=== PATIENT | female | born 1950 | race Caucasian/White ===

== ENCOUNTER 2020-12-30 07:32 | Outpatient (CLI) | payer MEDICARE, SELFPAY ==
--- NOTE | ~2020-12-30 | XR_ITS ---
UGI-AIR CONTRAST/SMALL BOWEL INDICATION: Epigastric pain. Lymphocytic colitis. TECHNIQUE: Serial images of the upper GI tract structures and small bowel are performed following ora l administration of barium using double contrast technique. COMPARISON: Ultrasound dated 12/30/2020 FINDINGS: Barium flowed readily through the esophagus. There is a small sliding hiatal hernia with ga stroesophageal reflux. Gastric contour, mucosa and motility are normal. The duodenal bulb fills and empties regularly and has a normal mucosal pattern. The duodenal sweep is in normal position. The m ucosal pattern of the small bowel is unremarkable with normal transit time to the colon. IMPRESSION: 1: Small hiatal hernia with gastroesophageal reflux. Otherwise, unremarkable upper GI/small bowel ser ies. Reviewed, dictated and finalized at location A. IMPRESSION: 1: Small hiatal hernia with gastroesophageal reflux. Otherwise, unremarkable up per GI/small bowel series.
--- NOTE | ~2020-12-30 | US_ITS ---
US abdomen complete EXAMINATION: US Abdomen Complete INDICATION: Epigastric pain. Prior cholecystectomy. PROCEDURE: Realtime High Resolution abdomen ultrasound. COMPARISON: No prior studies for comparison FINDINGS: Gallbladder is surgically absent. Common bile duct measures 7 mm. Liver echotexture within normal limits without focal mass. Pancreas within normal limits. Pancreati c tail is obscured by bowel gas. Spleen is unremarkeable. Renal echotexture is within normal limits bilaterally without hydronephrosis, or renal stone. There is a hypoechoic mass laterally in the left kidney measuring 8 mm, containing internal echogenic foci, possibly layering milk of calcium. Right k idney measures 10.2 cm. Left kidney measures 10.3 cm. Visualized aspects of the aorta and IVC are within normal limits. Portal vein is patent. No sonograph ic Laurent's sign indicated by the technologist. IMPRESSION: 1: Status post cholecystectomy with expected prominence of the bile ducts. 2: Hypoechoic left renal mass laterally measuring 8 mm with echogenic focus internally. This may repr esent layering milk of calcium. Consider correlation with CT with/without contrast. Reviewed, dictated and finalized at location A. IMPRESSION: 1: Status post cholecystectomy with expected prominence of the bile ducts. 2: Hypoechoic left renal mass laterally measuring 8 mm with echogenic focus int ernally. This may represent layering milk of calcium. Consider correlation with CT with/without contrast.
== END 2020-12-30 07:33 | disposition home or self-care (01) ==
PROVIDERS: PCP Internal Medicine; Visit Provider Internal Medicine
DX: R10.13 Epigastric pain (principal); K44.9 Diaphragmatic hernia without obstruction or gangrene; K21.9 Gastro-esophageal reflux disease without esophagitis; Z90.49 Acquired absence of other specified parts of digestive tract
CPT/HCPCS: 74240; 74248; 76700

== ENCOUNTER 2021-02-03 08:44 | Outpatient (CLI) | payer MEDICARE, SELFPAY ==
--- NOTE | ~2021-02-03 | CT_ITS ---
EXAMINATION: CT abdomen pelvis wo/w con EXAM DATE: 02/03/2021 09:22 INDICATION: N28.1 - Cyst/mass of kidney, acquired. Left flank pain. TECHNIQUE: Spiral CT of the abdomen without contrast followed by both abdomen and pelvis with 100 cc intravenous Omnipaque 350. Axial, coronal and sagittal images of the abdomen and pelvis were reviewe d. The dose-length product (DLP) for this examination was 623.06 mGy-cm. The exposure was tailored according to patient size (auto mA exposure control), and iterative reconstruction (ASIR) was used as additional dose reduction technique. There is no prior study for comparison. FINDINGS: In the midpole of the left kidney there is about 3 x 9 mm hypodense region, appearance most consistent with a cyst, but too small to definitively characterize. This likely correlates to the ul trasound finding. No suspicious renal lesions. The liver, spleen, adrenal glands and pancreas are un remarkable. There are cholecystectomy clips. Portal and splenic veins are patent. Kidneys enhance symmetrically. There is no hydronephrosis. The uterus is not identified and has likely been surgic ally resected. The bladder is unremarkable. There is no retroperitoneal or pelvic lymphadenopathy. There is mild to moderate scattered arteriosclerotic disease. The appendix is not positively visualized. There is no pericecal inflammatory change to suggest appe ndicitis. There is moderate sigmoid colonic diverticulosis. There is no adjacent inflammatory change to suggest diverticulitis. The stomach and small bowel are unremarkable. There is expected amount o f colonic stool. No free intraperitoneal gas. The heart is normal in size. There are no pericard ial or pleural effusions. The lung bases are unremarkable. There are no osteoblastic or osteolytic lesions identified. IMPRESSION: 1. Subcentimeter left renal lesion appearance most consistent with cyst, but too small to definitive ly characterize. Probably benign. 2. Moderate sigmoid diverticulosis. Reviewed, dictated and finalized at location A. IMPRESSION: 1. Subcentimeter left renal lesion appearance most consistent with cyst, but t oo small to definitively characterize. Probably benign. 2. Moderate sigmoid diverticulosis.
[2021-02-03 09:15] LABS: Estimated Glomerular Filt Rate > 60
== END 2021-02-03 08:45 | disposition home or self-care (01) ==
PROVIDERS: PCP Internal Medicine; Visit Provider Internal Medicine
DX: N28.1 Cyst of kidney, acquired (principal); K57.30 Diverticulosis of large intestine without perforation or abscess without bleeding
CPT/HCPCS: 74178; Q9967

== ENCOUNTER 2021-06-25 11:16 | Outpatient (CLI) | payer MEDICARE, SELFPAY ==
--- NOTE | 2021-06-28 16:18 | WPDHOLTEREM ---
Holter/Event Monitor Holter/Event Monitor Date of procedure: 06/28/21 Holter/Event Procedure: 48 Hr Holter Monitor Indications: PAC's Conclusion: 1. 48 hour holter monitor on 06/28/21. 2. Predominant rhythm is sinus rhythm. HR range is 53-194 bpm; average HR 96 bpm. 3. There are 1,571 premature supraventricular complexes, 28 supraventricular couplets, 12 supraventricular bigeminy, 3 supraventricular trigeminy. There are 22 episodes of supraventricular tachycardia, fastest at 188 bpm and longest lasting 5 beats. There are 35 episodes of atrial fibrillation, with burden of 19%. 4. There are 22 premature ventricular complexes. No ventricular tachycardia. 5. No significant pauses greater than 2 seconds. 6. Patient reports symptoms of fluttering which demonstrate atrial fibrillation at 171 bpm.
== END 2021-06-25 11:17 | disposition home or self-care (01) ==
PROVIDERS: PCP Internal Medicine; Visit Provider Internal Medicine
DX: I49.1 Atrial premature depolarization (principal)
CPT/HCPCS: 93225; 93226

== ENCOUNTER → 2021-09-29 02:57 | Outpatient (CLI) | payer MEDICARE, SELFPAY ==
[2021-09-29 19:39] LABS: SARS-CoV-2 RNA PCR Negative
== END ==
PROVIDERS: PCP Internal Medicine; Visit Provider Internal Medicine
DX: Z20.822 Contact with and (suspected) exposure to COVID-19 (principal)
CPT/HCPCS: C9803; U0003; U0005

== ENCOUNTER 2022-01-03 09:39 | Emergency (ER) | payer MEDICARE, SELFPAY ==
--- NOTE | 2022-01-03 09:45 | ECG_ITS ---
Measurements Intervals [place] Rate: 78 P: 64 SC: 125 QRS: 51 QRSD: 85 T: 49 QT: 362 QTc: 412 Interpretive Statements SINUS RHYTHM WITH OCCASIONAL SUPRAVENTRICULAR PREMATURE COMPLEXES BORDERLINE ECG NO PREVIOUS ECG AVAILABLE FOR COMPARISON Electronically Signed On 01-03-2022 12:28:20 CDT by Uvaldo Posada M.D.
[2022-01-03 09:48] VITALS: BP 143/90; PULSE 83; RESP 21; TEMP 36.4; O2SAT 100
--- NOTE | 2022-01-03 09:55 | ED.ARRPALP ---
HPI - Arrhythmia/Palpitations General Chief Complaint: Arrhythmia/Palpitations Stated Complaint: A-fib Time Seen by Provider: 01/03/22 09:47 Source: patient and RN notes reviewed Limitations: no limitations History of Present Illness HPI narrative: 71-year-old female with history of paroxysmal atrial fibrillation on Eliquis presenting to the emergency department from her primary care physician for evaluation of A. fib with RVR. Patient states last night at approximately 7 PM she felt that her heart rate increased. Patient did check this on her watch and was found to have atrial fibrillation with a heart rate of 156. Patient does have a history of paroxysmal A. fib and is prescribed metoprolol on an as needed basis. Patient did take 12.5 mg of metoprolol last night. Patient presented to her PCP for evaluation and was found to still be in A. fib with RVR. During transport down to the emergency department from her primary care physician's office patient did convert back to a sinus rhythm. Upon arrival to the emergency department patient's heart rate was 83 and normal sinus rhythm. Patient states she does feel improved at this time. Patient denies any chest pain or shortness of breath. Patient denies any nausea vomiting or diarrhea. Patient denies any recent illnesses coughs colds or fevers. Patient states that she did have multiple glasses of iced tea last night and that this would be an increase compared to her normal level of caffeine. Related Data Home Medications Medication Instructions Recorded Confirmed [id number]-Lm-mrdh-minerals tablet PO 12/09/20 08/16/21 calcium carbonate 500 mg-vitamin 1 tablet PO DAILY 06/23/21 08/16/21 D3 10 mcg (400 unit) tablet vitamin B complex 1 tablet PO DAILY 06/29/21 08/16/21 metoprolol tartrate 12.5 mg PRN 01/03/22 Allergies Allergy/AdvReac Type Severity Reaction Status Date / Time gluten Allergy Intermediate Rash Verified 01/03/22 10:46 acetaminophen [From Tylenol] Allergy Other Verified 01/03/22 10:46 aspirin Allergy Other Verified 01/03/22 10:46 codeine Allergy Other Verified 01/03/22 10:46 latex Allergy rash Verified 01/03/22 10:46 nitazoxanide Allergy Unknown Verified 01/03/22 10:46 Sulfa (Sulfonamide Allergy Other Verified 01/03/22 10:46 Antibiotics) Iodinated Contrast Media AdvReac Unknown Palpitation Verified 01/03/22 10:46 s Review of Systems Review of Systems: CONSTITUTIONAL: Denies fever, chills, or sweats. EYES: Denies visual changes, redness, or discharge. ENT: Denies rhinorrhea, congestion, sore throat, or otalgia. CARDIOVASCULAR: Heart palpitations- resolved RESPIRATORY: Denies cough or dyspnea. GASTROINTESTINAL: Denies abdominal pain, nausea, vomiting, or diarrhea. GENITOURINARY: Denies dysuria or hematuria. SKIN: Denies rash or itching. MUSCULOSKELETAL: Denies back pain, joint pain, or myalgia. NEUROLOGIC: Denies headache, numbness, or weakness. All systems reviewed & are unremarkable except as noted in HPI and below PMFSH Past Medical History Medical History Abnormal finding of blood chemistry Amaurosis fugax APC (atrial premature contractions) Atrial fibrillation BMI 26.0-26.9,adult Carotid bruit Cataract Colon cancer screening Dyslipidemia Elevated blood pressure reading without diagnosis of hypertension Encounter for Medicare annual wellness exam Encounter for routine adult health examination without abnormal findings Encounter for screening mammogram for malignant neoplasm of breast Epigastric pain Exposure to COVID-19 virus Follow up Gluten intolerance Heart murmur Hx of colonic polyps Hyperkeratosis Hypersomnia Hypothyroidism (acquired) Kidney lesion 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
[2022-01-03 10:24] LABS: Basophils Percent Auto 0.4 % (0.2-1.2); Eosinophils Absolute Auto 0.2 K/mm3 (0-0.3); Eosinophils Percent Auto 3.4 % (0-4.4); Hematocrit 39.9 % (37.0-47.0); Hemoglobin 13.2 g/dL (12.0-15.0); Immature Granulocyte Absolute 0.01 K/mm3 (0.00-0.031); Immature Granulocyte Percent A 0.2 % (0-0.5); Lymphocytes Absolute Auto 1.16 K/mm3 (0.9-3.2); Lymphocytes Percent Auto 21.9 % (18.3-44.2); Mean Corpuscular HGB Conc 33.1 g/dl (32-36); Mean Corpuscular Hemoglobin 32.4 pg (26-34); Mean Corpuscular Volume 97.8 fl (80-100); Mean Platelet Volume 9.9 fl (7.4-10.4); Monocytes Absolute Auto 0.4 K/mm3 (0.1-0.6); Monocytes Percent Auto 7.9 % (2.6-8.5); Neutrophils Absolute Auto 3.5 K/mm3 (1.3-6.7); Neutrophils Percent Auto 66.2 % (45.5-73.1); Platelet Count Result 240 k/mm3 (150-375); Red Blood Count 4.08 M/mm3 (4.2-5.4); White Blood Count 5.3 K/mm3 (4.5-10.0)
[2022-01-03 10:37] LABS: Alanine Aminotransferase 37 U/L (4-35); Albumin Level 4.3 g/dL (3.5-5.1); Alkaline Phosphatase 78 U/L (38-126); Anion Gap 7 mmol/L (8-16); Aspartate Amino Transferase 45 U/L (14-36); Bilirubin,Total 0.7 mg/dL (0.2-1.3); Blood Urea Nitrogen 19 mg/dL (7-17); Calcium 8.8 mg/dL (8.4-10.2); Carbon Dioxide 27 mmol/L (22-30); Chloride 102 mmol/L (98-107); Estimated Glomerular Filt Rate > 60; Glucose 99 mg/dL (65-110); Potassium 4.6 mmol/L (3.4-5.0); Sodium 136 mmol/L (137-145)
[2022-01-03 10:59] VITALS: BP 115/59; PULSE 75; RESP 19; O2SAT 98
== END 2022-01-03 11:05 | disposition home or self-care (01) ==
PROVIDERS: Emergency Provider Emergency Medicine; PCP Internal Medicine
DX: I48.0 Paroxysmal atrial fibrillation (principal); E78.5 Hyperlipidemia, unspecified; K90.41 Non-celiac gluten sensitivity; Z86.010 Personal history of colon polyps; E03.9 Hypothyroidism, unspecified; E53.8 Deficiency of other specified B group vitamins; E55.9 Vitamin D deficiency, unspecified; Z86.73 Personal history of transient ischemic attack (TIA), and cerebral infarction without residual deficits; Z79.01 Long term (current) use of anticoagulants
CPT/HCPCS: 36415; 80053; 85025; 93005; 99283

== ENCOUNTER 2022-01-11 12:31 | Outpatient (CLI) | payer MEDICARE, SELFPAY ==
--- NOTE | ~2022-01-11 | US_ITS ---
EXAMINATION: US renal BI DATE: 01/11/2022 14:02 INDICATION: Disorder of kidney and ureter with left renal mass TECHNIQUE: Multiple ultrasound grayscale images of the kidneys were obtained. COMPARISON: Ultrasound dated 12/30/[address] dated 01/26/2021 FINDINGS: The right kidney measures 9.6 x 4.3 x 4.8 cm. The left kidney measures 9.3 x 5.3 x 3.8 cm. The kidney s demonstrate normal echogenicity. Unchanged 8 mm anechoic left renal cyst. There is no hydronephrosi s in either kidney. No stones identified. The bladder is normal. IMPRESSION: 1. Unchanged 8 mm left renal cyst. Otherwise normal kidneys with no hydronephrosis. Reviewed, dictated and finalized at location B. IMPRESSION: 1. Unchanged 8 mm left renal cyst. Otherwise normal kidneys with no hydronephr osis.
--- NOTE | ~2022-01-11 | MR_ITS ---
EXAMINATION: MR brain/brain stem wo/w con DATE: 01/11/2022 13:30 INDICATION: Amaurosis fugax. Visual field loss. TECHNIQUE: Magnetic resonance imaging (MRI) of the brain and brainstem was performed without and with 13 mL MultiHance intravenous contrast. Sequences included sagittal and axial T1-weighted FSE, axial diffusion-weighted FS EPI, axial T2*-weighted GRE, axial T2-weighted FLAIR Propeller, and axial T2-we ighted Propeller. Postcontrast sequences included axial and coronal T1-weighted FSE. Apparent diffusi on coefficient (ADC) maps were created. COMPARISON: Brain MRI 09/24/2018 FINDINGS: There is no intracranial hemorrhage, acute infarction, or abnormal intracranial mass lesion . The ventricles are normal in size. The mastoid air cells are normal. The orbits are normal. The par anasal sinuses are clear. IMPRESSION: 1. Normal brain. Reviewed, dictated and finalized at location A. IMPRESSION: 1. Normal brain.
--- NOTE | ~2022-01-11 | US_ITS ---
EXAMINATION: US carotid duplex BI DATE: 01/11/2022 14:00 INDICATION: Atrial fibrillation TECHNIQUE: Grayscale, color Doppler, and pulsed Doppler images of the cervical carotid arteries were obtained. The degree of vessel stenosis is placed in one of the following categories: normal, <50%, 5 0-69%, >=70% but less than near-occlusion, near-occlusion, or total occlusion. Note that percent sten osis relative to normal distal artery lumen diameter is indirectly measured from velocity measurement s as described by Rufino, et al. Radiology 2003; 229:340-346. COMPARISON: None. FINDINGS: RIGHT: The right common carotid artery (CCA) peak systolic velocity (PSV) is 114 cm/s. The right internal ca rotid artery (ICA) PSV is 100 cm/s. The right ICA end-diastolic velocity (EDV) is 19 cm/s. The right ICA/CCA PSV ratio is 0.9. Grayscale and color Doppler images yield an estimate of <50% diameter reduc tion from plaque in the ICA. The external carotid artery (ECA) PSV is 153 cm/s. There is antegrade fl ow in the right vertebral artery. LEFT: The left CCA PSV is 108 cm/s. The left ICA PSV is 95 cm/s. The left ICA EDV is 11 cm/s. The left ICA/ CCA PSV ratio is 0.9. Grayscale and color Doppler images yield an estimate of <50% diameter reduction from plaque in the ICA. The ECA PSV is 134 cm/s. There is antegrade flow in the left vertebral arter y. IMPRESSION: 1. <50% stenosis in the right internal carotid artery. 2. <50% stenosis in the left internal carotid artery. Reviewed, dictated and finalized at location B.
== END 2022-01-11 12:32 | disposition home or self-care (01) ==
LOC: ANHIMG 12:32
PROVIDERS: PCP Internal Medicine; Visit Provider Internal Medicine
DX: N28.9 Disorder of kidney and ureter, unspecified (principal); R09.89 Other specified symptoms and signs involving the circulatory and respiratory systems; N28.1 Cyst of kidney, acquired; I65.23 Occlusion and stenosis of bilateral carotid arteries
CPT/HCPCS: 70553; 76775; 93880; A9577

== ENCOUNTER 2022-05-02 07:55 | Outpatient (CLI) | payer MEDICARE, SELFPAY ==
--- NOTE | ~2022-05-02 | DEXA_ITS ---
Bone Density Report Name: BJ STILES Age: 71 Sex: Female Ethnicity: White Date of : 1950 Indication: postmenopausal; screening for osteoporosis; hysterectomy; Referring Provider: CHILANGO CLEMONS Study: Bone densitometry was performed. Exam Date: May 02, 2022 Accession number: [id number] Bone Density: Region BMD T-score Z-score Classification AP Spine(L1-L4) 0.993 -0.5 1.8 Normal Femoral Neck (Left) 0.761 -0.8 1.2 Normal Total Hip (Left) 0.895 -0.4 1.3 Normal Femoral Neck (Right) 0.759 -0.8 1.1 Normal Total Hip (Right) 0.879 -0.5 1.1 Normal Total Hip Mean 0.887 -0.5 1.2 Normal World Health Organization criteria for BMD impression classify patients as: Normal (T-score at or above -1.0), Osteopenia (T-score between -1.0 and -2.5), or Osteoporosis (T-score at or below -2.5). 10-year Fracture Risk: FRAX not reported because: All T-scores for Spine Total, Hip Total, Femoral Neck at or above -1.0 Previous Exams: Region Exam Age BMD T-score BMD Change BMD Change Date g/cm2 vs Baseline vs Previous AP Spine (L1-L4) 05/02/2022 71 0.993 -0.5 -0.040 (-3.9%) -0.040 (-3.9%) 07/05/2019 68 1.033 -0.1 Total Hip(Left) 05/02/2022 71 0.895 -0.4 -0.082 (-8.4%) -0.082 (-8.4%) 07/05/2019 68 0.977 0.3 Total Hip(Right) 05/02/2022 71 0.879 -0.5 -0.063 (-6.7%) -0.063 (-6.7%) 07/05/2019 68 0.942 0.0 *Denotes significance at 95% confidence level, LSC for AP Spine = 0.022 g/cm2, LSC for Total Hip = 0.027 g/cm2 # Denotes dissimilar scan types or analysis methods Clinical Information Provided by Patient: Has used the following medications: Vitamin D, Calcium Has the following medical conditions: Hysterectomy Patient maximum height was 63.5 Menopause Age: 22 Does not regularly consume dairy products Drinks caffeinated beverages Onset of menses at age 9 Number of children 3 Impression: The patient has normal bone mass. No significant bone loss was observed. Discussion: BONE DENSITY IS ABOVE THE MINIMUM DESIRABLE LEVEL AT ALL SKELETAL SITES TESTED. This patient?s bone mineral density is above the minimum desirable level (T-score -1.0 or better) at all sites measured. The patient should follow a healthful lifestyle (good nutrition with adequate calcium and vitamin D, and appropriate weight-bearing exercise). Follow-Up: Consider repeating this study in 5 years or sooner if there is some new clinical indication.
--- NOTE | ~2022-05-02 | MM_ITS ---
EXAMINATION: MM screening kang BI w nieves HISTORY: Screening mammogram TECHNIQUE: Craniocaudal and mediolateral oblique 3-D tomosynthesis images were obtained and synthetic 2-D images were generated. CAD analysis was submitted and interpreted. COMPARISON: 07/05/2019 bilateral screening mammogram BREAST PARENCHYMAL COMPOSITION: There are scattered areas of fibroglandular density. FINDINGS: Benign stable circumscribed intramammary lymph node again noted in the upper outer quadrant of each breast. There is no evidence of suspicious mass, calcification, or architectural distortion to suggest malignancy in either breast. There has been no suspicious interval change. IMPRESSION: 1. No mammographic evidence of malignancy. 2. Recommend routine screening mammography in one year. BI-RADS Category 2: Benign finding(s). Reviewed, dictated and finalized at location A.
== END 2022-05-02 07:56 | disposition home or self-care (01) ==
PROVIDERS: PCP Internal Medicine; Visit Provider Internal Medicine
DX: Z12.31 Encounter for screening mammogram for malignant neoplasm of breast (principal); Z78.0 Asymptomatic menopausal state
CPT/HCPCS: 77063; 77067; 77080

== ENCOUNTER 2023-05-08 13:14 | Outpatient (NON) | payer MEDICARE, SELFPAY | END 2023-05-08 13:15 | disposition home or self-care (01) | PROVIDERS: PCP Internal Medicine; Visit Provider Nurse Practitioner | DX: L30.8 Other specified dermatitis (principal) | CPT/HCPCS: 88305 ==

== ENCOUNTER 2024-07-09 14:33 | Outpatient (CLI) | payer MEDICARE, SELFPAY ==
--- NOTE | ~2024-07-09 | MM_ITS ---
EXAMINATION: MM screening kang BI w nieves HISTORY: Screening TECHNIQUE: Craniocaudal and mediolateral oblique 3-D tomosynthesis images were obtained and synthetic 2-D images were generated. CAD analysis was submitted and interpreted. COMPARISON: Comparison to multiple prior studies sequentially, with oldest reviewed study dated 07/05. BREAST PARENCHYMAL COMPOSITION: Not dense: There are scattered areas of fibroglandular density. FINDINGS: There is no evidence of suspicious mass, calcification, or architectural distortion to sugg est malignancy in either breast. There has been no suspicious interval change. IMPRESSION: 1. No mammographic evidence of malignancy. 2. Recommend routine screening mammography in one year. BI-RADS Category 1: Negative Reviewed, dictated and finalized at location B.
== END 2024-07-09 14:34 | disposition home or self-care (01) ==
LOC: MICIMG 14:34
PROVIDERS: PCP Internal Medicine; Visit Provider Internal Medicine
DX: Z12.31 Encounter for screening mammogram for malignant neoplasm of breast (principal)
CPT/HCPCS: 77063; 77067

== ENCOUNTER 2024-08-15 00:36 | Day surgery (SDC) | payer MEDICARE, SELFPAY ==
[2024-08-06 14:17] VITALS: BMI 25.4
--- NOTE | 2024-08-06 14:54 | PC.NURSE ---
Spoke with _PATIENT_ regarding medication _ELIQUIS. Pt. verbalizes understanding that the last dose of ELIQUIS is to be taken on 08/11/2024 and the Endoscopist will instruct them when to restart after the procedure.
[2024-08-15 07:48] VITALS: BP 134/57; PULSE 62; RESP 18; TEMP 36.6; O2SAT 98; BMI 24.6
[2024-08-15] MEDS: LACTATED RINGERS 1,000 ML 150 ML IV CONT (08:02)
--- NOTE | 2024-08-15 08:37 | P.HP_ITS ---
H&P: HPI History of Present Illness Date/Time: 08/15/24 08:37 Chief Complaint: History of polyps Narrative: The patient has a history of colonic polyps, the last colonoscopy was 6 years ago. Twenty-two years ago the patient had a pre neoplastic polyp. There are no current GI symptoms, rectal bleeding or change in bowel habits. Review of Systems Review of Systems: All systems reviewed & are unremarkable except as noted in HPI and below [facility] Past Medical History Medical History (Updated 06/11/24 @ 08:37 by Ann Vargas [facility]) Abnormal finding of blood chemistry Amaurosis fugax APC (atrial premature contractions) Atrial fibrillation Bicuspid aortic valve BMI 23.0-23.9, adult BMI 24.0-24.9, adult BMI 25.0-25.9,adult BMI 26.0-26.9,adult Carotid bruit Cataract Cataract of right eye Colon cancer screening DJD (degenerative joint disease) Elevated blood pressure reading without diagnosis of hypertension Encounter for Medicare annual wellness exam Encounter for routine adult health examination with abnormal findings Encounter for routine adult health examination without abnormal findings Encounter for screening mammogram for malignant neoplasm of breast Epigastric pain Exposure to COVID-19 virus Follow up Gluten intolerance Heart murmur History of cataract Hx of colonic polyps Hyperkeratosis Hypersomnia Hypothyroidism (acquired) Kidney lesion Mitral valve regurgitation Mixed hyperlipidemia 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 DIMAS on CPAP Overweight (BMI 25.0-29.9) Post menopausal syndrome Postmenopausal Renal cyst, left Squamous cell carcinoma of nose Thyroid disease TIA (transient ischemic attack) Tricuspid valve regurgitation Vitamin B12 deficiency Vitamin D deficiency Surgical History Surgical History History of appendectomy History of cholecystectomy History of ERCP History of hysterectomy Social History Social History Smoking status: Never smoker Second hand tobacco smoke exposure: No Alcohol intake: current Substance use: never Substance use type: does not use Lack of Transportation: No Lack of Food: Never True Current Housing: I Have Housing Concerned About Future Housing: No Difficulty Paying Gas/Electric Bills: No Difficulty Paying for Meds: No Currently Unemployed: No Education: Decline to Answer Difficulty w/ Childcare or Family Care: No Living arrangements: with family Gender identity (if verbalized by the patient): Female Spiritual care concerns: No Meds Home Medications and Allergies Home Medications Medication Instructions Recorded Confirmed Type famotidine 40 mg tablet (Pepcid) 40 mg PO DAILY PRN GERD #90 tabs 06/23/21 08/15/24 Rx lorazepam 0.5 mg tablet 0.5 mg PO TID PRN anxiety #50 tabs 08/04/22 08/15/24 Rx metoprolol tartrate 25 mg tablet 25 mg PO DAILY 11/16/22 08/15/24 History apixaban 5 mg tablet (Eliquis) See Rx Instructions .Route 05/10/23 08/15/24 Rx .COMPLEX #180 tabs cholecalciferol (vitamin D3) 50 50 mcg PO DAILY 10/19/23 08/15/24 History mcg (2,000 unit) capsule Krill oil 2,000 mg BYMOUTH DAILY 11/01/23 08/15/24 History Vitamin D + K 2,000 units BYMOUTH DAILY #90 caps 11/01/23 08/15/24 Rx curcumin-phosphatidylcholine 500 500 mg PO BID 11/01/23 08/15/24 History mg capsule cyanocobalamin (vitamin B-12) See Rx Instructions .Route 11/01/23 08/15/24 Rx 1,000 mcg/mL injection solution .COMPLEX #12 mL ezetimibe 10 mg tablet (Zetia) 10 mg PO DAILY #90 tabs 06/11/24 08/15/24 Rx levothyroxine 50 mcg tablet See Rx Instructions .Route 06/17/24 08/15/24 Rx .COMPLEX #90 tabs syringe with needle, safety 3 mL #20 ea 07/15/24 08/15/24 Rx 25 gauge x 1 (BD Integra Syringe) Allergies Allergy/AdvReac Type Severity Reaction Status Date / Time gluten Allergy Severe Rash Verified 08/15/24 07:46 aspirin Allergy Intermediate Rash Verified 08/15/24 07:46 codeine Allergy Intermediate Rash Verified 08/15/24 07:46 ibuprofen Allergy Intermediate Itching Verified 08/15/24 07:46 Iodinated Contrast Media Allergy Intermediate Palpitation Verified 08/15/24 07:46 s latex Allergy Intermediate rash Verified 08/15/24 07:46 nitazoxanide Allergy Intermediate Numbness Verified 08/15/24 07:46 Sulfa (Sulfonamide Allergy Intermediate Itching Verified 08/15/24 07:46 Antibiotics) acetaminophen [From Tylenol] AdvReac Intermediate Itching Verified 08/15/24 07:46 goats milk Allergy Intermediate Blister Uncoded 08/15/24 07:46 Vital Signs Vital Signs - 24 hr 08/15/24 07:48 Temperature 97.8 F Pulse Rate 62 Respiratory Rate 18 Blood Pressure 134/57 L Pulse Oximetry 98 Oxygen Delivery Room Air Exam Const: General: cooperative and healthy appearing Resp: Effort & Inspection: normal respiratory effort and able to speak in complete sentences Auscultation: clear to auscultation bilaterally Cardio: Rate: regular rate Rhythm: regular rhythm GI: Inspection: normal to inspection GI Palp: No No hepatosplenomegaly present Auscultation: normal bowel sounds Rectal Exam: deferred Skin: General skin exam: normal color Psych: Appearance: grossly normal Mental Status: mental status grossly normal Assessment and Plan Assessment and plan (1) Colon cancer screening: Code(s): Z12.11 - Encounter for screening for malignant neoplasm of colon Status: Acute Assessment and Plan: The patient is deemed a good candidate for the procedure. Consent signed. Will proceed.
--- NOTE | 2024-08-15 08:40 | P.PNAN_ITS ---
Anes - Initial Pre Proc Eval Procedure: Operation Date: 08/15/24 09:00 Proposed Procedures p Colonoscopy - Tucker Payne MD Date/Time: 08/15/24 08:40 Surgeon: Tucker Payne MD Pre Op Diagnosis: hx of colon polyps Patient Data Age: 74 Gender: F Height: 1.6 m Weight: 63.1 kg Last Vital Signs Temp 36.6 C 08/15/24 07:48 Pulse 62 08/15/24 07:48 Resp 18 08/15/24 07:48 BP 134/57 L 08/15/24 07:48 Pulse Ox 98 08/15/24 07:48 O2 Del Method Room Air 08/15/24 07:48 Allergies Allergy/AdvReac Type Severity Reaction Status Date / Time gluten Allergy Severe Rash Verified 08/15/24 07:46 aspirin Allergy Intermediate Rash Verified 08/15/24 07:46 codeine Allergy Intermediate Rash Verified 08/15/24 07:46 ibuprofen Allergy Intermediate Itching Verified 08/15/24 07:46 Iodinated Contrast Media Allergy Intermediate Palpitation Verified 08/15/24 07:46 s latex Allergy Intermediate rash Verified 08/15/24 07:46 nitazoxanide Allergy Intermediate Numbness Verified 08/15/24 07:46 Sulfa (Sulfonamide Allergy Intermediate Itching Verified 08/15/24 07:46 Antibiotics) acetaminophen [From Tylenol] AdvReac Intermediate Itching Verified 08/15/24 07:46 goats milk Allergy Intermediate Blister Uncoded 08/15/24 07:46 Home Medications Medication Instructions Recorded Confirmed Type famotidine 40 mg tablet (Pepcid) 40 mg PO DAILY PRN GERD #90 tabs 06/23/21 08/15/24 Rx lorazepam 0.5 mg tablet 0.5 mg PO TID PRN anxiety #50 tabs 08/04/22 08/15/24 Rx metoprolol tartrate 25 mg tablet 25 mg PO DAILY 11/16/22 08/15/24 History apixaban 5 mg tablet (Eliquis) See Rx Instructions .Route 05/10/23 08/15/24 Rx .COMPLEX #180 tabs cholecalciferol (vitamin D3) 50 50 mcg PO DAILY 10/19/23 08/15/24 History mcg (2,000 unit) capsule Krill oil 2,000 mg BYMOUTH DAILY 11/01/23 08/15/24 History Vitamin D + K 2,000 units BYMOUTH DAILY #90 caps 11/01/23 08/15/24 Rx curcumin-phosphatidylcholine 500 500 mg PO BID 11/01/23 08/15/24 History mg capsule cyanocobalamin (vitamin B-12) See Rx Instructions .Route 11/01/23 08/15/24 Rx 1,000 mcg/mL injection solution .COMPLEX #12 mL ezetimibe 10 mg tablet (Zetia) 10 mg PO DAILY #90 tabs 06/11/24 08/15/24 Rx levothyroxine 50 mcg tablet See Rx Instructions .Route 06/17/24 08/15/24 Rx .COMPLEX #90 tabs syringe with needle, safety 3 mL #20 ea 07/15/24 08/15/24 Rx 25 gauge x 1 (BD Integra Syringe) Patient hx anesthesia problems: none Family hx anesthesia problems: none Results Review: All pre-operative results and documents have been reviewed as part of the pre- operative evaluation. [facility] Past Medical History Medical History Abnormal finding of blood chemistry Amaurosis fugax APC (atrial premature contractions) Atrial fibrillation Bicuspid aortic valve BMI 23.0-23.9, adult BMI 24.0-24.9, adult BMI 25.0-25.9,adult BMI 26.0-26.9,adult Carotid bruit Cataract Cataract of right eye Colon cancer screening DJD (degenerative joint disease) Elevated blood pressure reading without diagnosis of hypertension Encounter for Medicare annual wellness exam Encounter for routine adult health examination with abnormal findings Encounter for routine adult health examination without abnormal findings Encounter for screening mammogram for malignant neoplasm of breast Epigastric pain Exposure to COVID-19 virus Follow up Gluten intolerance Heart murmur History of cataract Hx of colonic polyps Hyperkeratosis Hypersomnia Hypothyroidism (acquired) Kidney lesion Mitral valve regurgitation Mixed hyperlipidemia 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 DIMAS on CPAP Overweight (BMI 25.0-29.9) Post menopausal syndrome Postmenopausal Renal cyst, left Squamous cell carcinoma of nose Thyroid disease TIA (transient ischemic attack) Tricuspid valve regurgitation Vitamin B12 deficiency Vitamin D deficiency Surgical History Surgical History History of appendectomy History of cholecystectomy History of ERCP History of hysterectomy Social History Social History Smoking status: Never smoker Second hand tobacco smoke exposure: No Alcohol intake: current Substance use: never Substance use type: does not use Lack of Transportation: No Lack of Food: Never True Current Housing: I Have Housing Concerned About Future Housing: No Difficulty Paying Gas/Electric Bills: No Difficulty Paying for Meds: No Currently Unemployed: No Education: Decline to Answer Difficulty w/ Childcare or Family Care: No Living arrangements: with family Gender identity (if verbalized by the patient): Female Spiritual care concerns: No Anes - Eval Final PreProcedure Day of Procedure 08/15/24 08:40 Patient weight: normal Heart: regular rate and rhythm Lungs: clear to auscultation and normal air movement Airway: Mallampati scale Neurological: alert and oriented Last oral intake: >/= 8 hours ASA classification: III Emergent: no Anesthetic plan: proceed Anesthesia type and monitoring: general GIVS and standard monitoring Results Review: All pre-operative results and documents have been reviewed as part of the pre- operative evaluation. Informed Consent: The patient's anesthetic plan and its attendant risks and benefits were discussed with the patient/family/POA. Questions were solicited and answers provided to the satisfaction of the patient/family/POA.
[2024-08-15 09:17] VITALS: BP 105/60; PULSE 65; RESP 18; O2SAT 99
[2024-08-15 09:27] VITALS: BP 107/61; PULSE 66; RESP 16; O2SAT 99
[2024-08-15 09:31] VITALS: BP 119/69; PULSE 70; RESP 16; O2SAT 100
== END 2024-08-15 09:44 | disposition home or self-care (01) ==
PROVIDERS: PCP Internal Medicine; Referring Provider Internal Medicine; Visit Provider Internal Medicine Gastroenterology
PROC: 0DJD8ZZ Inspection of Lower Intestinal Tract, Via Natural or Artificial Opening Endoscopic (ICD-10-PCS; CPT 45378; principal; 2024-08-15 09:00)
DX: Z12.11 Encounter for screening for malignant neoplasm of colon (principal); K63.5 Polyp of colon; K57.30 Diverticulosis of large intestine without perforation or abscess without bleeding; G47.10 Hypersomnia, unspecified; E03.9 Hypothyroidism, unspecified; E78.2 Mixed hyperlipidemia; E07.9 Disorder of thyroid, unspecified; E53.8 Deficiency of other specified B group vitamins; E55.9 Vitamin D deficiency, unspecified; G47.33 Obstructive sleep apnea (adult) (pediatric); R01.1 Cardiac murmur, unspecified; R03.0 Elevated blood-pressure reading, without diagnosis of hypertension; K90.41 Non-celiac gluten sensitivity; I49.1 Atrial premature depolarization; I48.91 Unspecified atrial fibrillation; Q23.81 Bicuspid aortic valve; I08.3 Combined rheumatic disorders of mitral, aortic and tricuspid valves; Z79.899 Other long term (current) drug therapy; Z79.01 Long term (current) use of anticoagulants; Z99.89 Dependence on other enabling machines and devices; Z98.890 Other specified postprocedural states; Z90.49 Acquired absence of other specified parts of digestive tract; Z85.828 Personal history of other malignant neoplasm of skin; Z86.79 Personal history of other diseases of the circulatory system; Z86.73 Personal history of transient ischemic attack (TIA), and cerebral infarction without residual deficits
CPT/HCPCS: 45385; 88305; J2003; J2704; J7120

== ENCOUNTER 2024-11-08 08:18 | Outpatient (CLI) | payer MEDICARE, SELFPAY ==
--- NOTE | ~2024-11-08 | DEXA_ITS ---
Bone Density Report Name: BJ STILES Age: 74 Sex: Female Ethnicity: White Date of : 1950 Indication: postmenopausal; screening for osteoporosis; prior fracture; hysterectomy; Referring Provider: CHILANGO CLEMONS Study: Bone densitometry was performed. Exam Date: November 08, 2024 Accession number: [id number] Bone Density: Region BMD T-score Z-score Classification AP Spine(L1-L4) 0.992 -0.5 1.9 Normal Femoral Neck (Left) 0.728 -1.1 1.0 Osteopenia Total Hip (Left) 0.854 -0.7 1.1 Normal Femoral Neck (Right) 0.739 -1.0 1.1 Normal Total Hip (Right) 0.845 -0.8 1.0 Normal Total Hip Mean 0.849 -0.8 1.1 Normal World Health Organization criteria for BMD impression classify patients as: Normal (T-score at or above -1.0), Osteopenia (T-score between -1.0 and -2.5), or Osteoporosis (T-score at or below -2.5). 10-year Fracture Risk: FRAX not reported because: Prior hip or vertebral fracture Previous Exams: Region Exam Age BMD T-score BMD Change BMD Change Date g/cm2 vs Baseline vs Previous AP Spine (L1-L4) 11/08/2024 74 0.992 -0.5 -0.041 (-3.9%) -0.001 (-0.1%) 05/02/2022 71 0.993 -0.5 -0.040 (-3.9%) -0.040 (-3.9%) 07/05/2019 68 1.033 -0.1 Total Hip(Left) 11/08/2024 74 0.854 -0.7 -0.123 (-12.6% -0.041 (-4.6%) 05/02/2022 71 0.895 -0.4 -0.082 (-8.4%) -0.082 (-8.4%) 07/05/2019 68 0.977 0.3 Total Hip(Right) 11/08/2024 74 0.845 -0.8 -0.097 (-10.3% -0.034 (-3.9%) 05/02/2022 71 0.879 -0.5 -0.063 (-6.7%) -0.063 (-6.7%) 07/05/2019 68 0.942 0.0 *Denotes significance at 95% confidence level, LSC for AP Spine = 0.022 g/cm2, LSC for Total Hip = 0.027 g/cm2 # Denotes dissimilar scan types or analysis methods Clinical Information Provided by Patient: Have had a previous hip or vertebral fracture Has had a low trauma fracture Has used the following medications: Vitamin D, Calcium Has the following medical conditions: Hysterectomy Patient maximum height was 63 Menopause Age: 22 Does not regularly consume dairy products Drinks caffeinated beverages Onset of menses at age 8 Number of children 3 Impression: The patient has low bone mass, based on the Left Femoral Neck T-score. The patient has risk factors, including: previous fracture. No significant bone loss was observed. Discussion: INCREASED RISK OF FRACTURE DUE TO HISTORY OF FRACTURE. The patient's previous fracture puts the patient at high risk of a future fracture. In untreated patients, the risk of osteoporotic fracture increases approximately two-fold for each 1.0 SD decrease in T-score. Low bone density is not the only risk factor for fracture; also consider factors such as patient's age, frailty or poor health, risk of falling, risk of injury, previous osteoporotic fracture, family history of osteoporosis, cigarette smoking, low body weight, etc. Not everyone with a low trauma fracture has osteoporosis; osteomalacia and other metabolic bone disorders should also be considered. Patients who have osteoporosis should be evaluated for specific diseases and conditions (secondary causes) that may cause or contribute to bone loss and fracture risk. National Osteoporosis Foundation (NOF) recommends pharmacologic intervention for patients with a prior hip or vertebral fracture regardless of BMD T-score. The patient should follow a healthful lifestyle (good nutrition with adequate calcium and vitamin D, and appropriate weight-bearing exercise). Follow-Up: Consider a repeat BMD and Vertebral Fracture Assessment (VFA) exam in 2 years or sooner if medically necessary, to reassess this patient's status. Reported by: DUSTIN on 11/08/2024 8:50:00 AM. Reviewed, dictated and finalized at location [facility]
== END 2024-11-08 08:19 | disposition home or self-care (01) ==
LOC: ANHIMG 08:20
PROVIDERS: PCP Internal Medicine; Visit Provider Internal Medicine
DX: Z78.0 Asymptomatic menopausal state (principal); E55.9 Vitamin D deficiency, unspecified; M85.852 Other specified disorders of bone density and structure, left thigh
CPT/HCPCS: 77080